=== PATIENT | female | born 1965 | race African-American/Black ===

== ENCOUNTER → 2019-04-14 | Outpatient (CLI) | payer OTHER, SELFPAY ==
[2019-04-17 09:45] LABS: HEPATITIS B SURFACE ANTIBODY POSITIVE (POSITIVE)
[2019-04-19 15:03] LABS: HEPATITIS B SURFACE ANTIGEN NEGATIVE (NEGATIVE)
== END ==
LOC: M LAB 15:17
PROVIDERS: ATTEND Internal Medicine Infectious Disease
DX: Z11.1 Encounter for screening for respiratory tuberculosis (principal)